=== PATIENT | male | born 1940 | race Caucasian/White ===

== ENCOUNTER 2016-02-19 14:54 | Outpatient (RCR) | payer MEDICARE, OTHER ==
--- OUTSIDE RECORDS SUMMARY | 2015-12-11 14:36 | XMS REPORT | Continuity of Care Document ---
Author Author [facility] Organization [facility] Address Unknown Phone Unavailable Care Team Providers Care Restaurant Supervisor Name Role Phone CHRISTIANA GIBSON MD PCP Insurance Providers Payer Name Policy Number Subscriber Name Relationship [employer] [id number] Martin Maldonado 18 Self / Same As Patient [employer] [id number] Martin Mladonado 20 Self / Same As Patient Advance Directives Directive Response Recorded Date/Time Advance Directives No 08/03/12 7:56am Health Care Power of Dental Tech No 08/03/12 7:56am Organ Donor No 08/03/12 7:56am Problems No problem information available. Medications Current Home Medications Medication Dose Units Route Directions Days/Qty Instructions Start Date Lisinopril 20 Mg 20 Mg Oral Daily 10/20/11 Cimetidine 200 Mg 200 Mg Oral Twice A Day 10/20/11 Aspirin 325 Mg 325 Mg Oral Daily 07/25/12 Salmeterol Xinafoate 50 Mcg 1 Puff Inhalation Give Every 12 Hrs On Schedule 07/25/12 Hydrochlorothiazide 25 Mg 25 Mg Oral Daily 08/03/12 Tamsulosin Hcl 0.4 Mg 0.4 Mg Oral Daily 08/03/12 Past Home Medications Medication Directions Ordered Status Atenolol 25 Mg Tablet, 1 Each Oral Twice A Day 10/20/11 Discontinued Fluticasone Propionate 100 Mcg Disk.w.dev, 1 Puff Inhalation Twice A Day 06/03 Discontinued Docusate Sodium 100 Mg Tablet, 100 Mg Oral 07/25/12 Discontinued Social History Social History Problem Response Recorded Date/Time Recent Foreign Travel [place] 09/04/2015 2:38pm Hospital Discharge Instructions No hospital discharge instructions. Plan of Care Prescriptions See Medication Section Functional Status No functional status results. Allergies, Adverse Reactions, Alerts Allergen Type Severity Reaction Status Last Updated cefuroxime axetil Allergy Active 10/20/11 Cephalexin Monohydrate Allergy Active 10/20/11 Cefadroxil Hydrate Allergy Active 10/20/11 Penicillins ([id number]) Allergy Unknown Active 08/03/12 Cephalosporins ([id number]) Allergy Active 10/20/11 Cephalexin Allergy Active 10/20/11 cefaclor ([id number]) Allergy Active 10/20/11 amoxicillin ([id number]) Allergy Active 10/20/11 Immunizations No immunization records. Vital Signs No known vital signs results. Results Laboratory Results Test Name Result Units Flags Reference Collection Date/Time Result Date/ Time Comments White Blood Count 5.7 10^3/uL 4.3-11.0 11/06/2015 2:45pm 11/08/2015 10: 00pm Red Blood Count 4.19 10^6/uL L 4.35-5.85 11/06/2015 2:45pm 11/08/2015 10: 00pm Hemoglobin 14.2 G/DL 13.3-17.7 11/06/2015 2:45pm 11/08/2015 10:00pm Hematocrit 43 % 40-54 11/06/2015 2:45pm 11/08/2015 10:00pm Mean Corpuscular Volume 103 FL H 80-99 11/06/2015 2:45pm 11/08/2015 10: 00pm Mean Corpuscular Hemoglobin 34 PG 25-34 11/06/2015 2:45pm 11/08/2015 10 :00pm Mean Corpuscular Hemoglobin Concent 33 G/DL 32-36 11/06/2015 2:45pm 10:00pm Red Cell Distribution Width 13.4 % 10.0-14.5 11/06/2015 2:45pm 2015 10:00pm Platelet Count 222 10^3/uL 130-400 11/06/2015 2:45pm 11/08/2015 10: 00pm Mean Platelet Volume 9.8 FL 7.4-10.4 11/06/2015 2:45pm 11/08/2015 10: 00pm Neutrophils (%) (Auto) 66 % 42-75 11/06/2015 2:45pm 11/08/2015 10:00pm Lymphocytes (%) (Auto) 23 % 12-44 11/06/2015 2:45pm 11/08/2015 10:00pm Monocytes (%) (Auto) 8 % 0-12 11/06/2015 2:45pm 11/08/2015 10:00pm Eosinophils (%) (Auto) 2 % 0-10 11/06/2015 2:45pm 11/08/2015 10:00pm Basophils (%) (Auto) 1 % 0-10 11/06/2015 2:45pm 11/08/2015 10:00pm Neutrophils # (Auto) 3.7 X 10^3 1.8-7.8 11/06/2015 2:45pm 11/08/2015 10 :00pm Lymphocytes # (Auto) 1.3 X 10^3 1.0-4.0 11/06/2015 2:45pm 11/08/2015 10 :00pm Monocytes # (Auto) 0.5 X 10^3 0.0-1.0 11/06/2015 2:45pm 11/08/2015 10: 00pm Eosinophils # (Auto) 0.1 10^3/uL 0.0-0.3 11/06/2015 2:45pm 11/08/2015 10:00pm Basophils # (Auto) 0.1 10^3/uL 0.0-0.1 11/06/2015 2:45pm 11/08/2015 10: 00pm Sodium Level 139 MMOL/L 135-145 11/06/2015 2:45pm 11/07/2015 11:32am Potassium Level 4.4 MMOL/L 3.6-5.0 11/06/2015 2:45pm 11/07/2015 11: 32am Chloride Level 111 MMOL/L H 98-107 11/06/2015 2:45pm 11/07/2015 11:32am Carbon Dioxide Level 21 MMOL/L 21-32 11/06/2015 2:45pm 11/07/2015 11: 32am Anion Gap 7 MMOL/L 5-14 11/06/2015 2:45pm 11/07/2015 11:32am Blood Urea Nitrogen 29 MG/DL H 7-18 11/06/2015 2:45pm 11/07/2015 11:32am Creatinine 1.32 MG/DL H 0.60-1.30 11/06/2015 2:45pm 11/07/2015 11:32am BUN/Creatinine Ratio 22 11/06/2015 2:45pm 11/07/2015 11:32am Estimat Glomerular Filtration Rate 53 11/06/2015 2:45pm 11/07/2015 11:32am GFR INTERPRETIVE DATA UNITS FOR ESTIMATED GFR (eGFR): mL/min/1.73 M2 REFERENCE RANGE FOR ESTIMATED GFR (eGFR) eGFR NORMAL eGFR >60 MODERATELY DECREASED eGFR 30-59 SEVERLY DECREASED eGFR 15-29 KIDNEY FAILURE <15 (OR DIALYSIS) Glucose Level 132 MG/DL H 70-105 11/06/2015 2:45pm 11/07/2015 11:32am Calcium Level 8.7 MG/DL 8.5-10.1 11/06/2015 2:45pm 11/07/2015 11:32am Total Bilirubin 1.4 MG/DL H 0.1-1.0 11/06/2015 2:45pm 11/07/2015 11:32am Alkaline Phosphatase 73 U/L 40-136 11/06/2015 2:45pm 11/07/2015 11: 32am Aspartate Amino Transf (AST/SGOT) 18 U/L 5-34 11/06/2015 2:45pm 2015 11:32am Alanine Aminotransferase (ALT/SGPT) 26 U/L 0-55 11/06/2015 2:45pm 11/06 11:32am Total Protein 5.5 G/DL L 6.4-8.2 11/06/2015 2:45pm 11/07/2015 11:32am Albumin 3.6 G/DL 3.2-4.5 11/06/2015 2:45pm 11/07/2015 11:32am Procedures No known history of procedures. Encounters Encounter Location Arrival/Admit Date Discharge/Depart Date Attending Provider Discharged Recurring [facility] 11/06/15 2:42pm 12:01pm TEODORO CARRERA MD
[2015-12-11 17:04] LABS: BASOPHILS % (AUTO) 1 % (0-10); EOSINOPHILS # (AUTO) 0.1 10^3/uL (0.0-0.3); EOSINOPHILS % (AUTO) 1 % (0-10); LYMPHOCYTES # (AUTO) 0.9 X 10^3 (1.0-4.0); LYMPHOCYTES % (AUTO) 21 % (12-44); MEAN CORPUSCULAR HEMOGLOBIN 34 PG (25-34); MEAN CORPUSCULAR HGB CONC 33 G/DL (32-36); MEAN CORPUSCULAR VOLUME 104 FL (80-99); MEAN PLATELET VOLUME 10.1 FL (7.4-10.4); MONOCYTES # (AUTO) 0.5 X 10^3 (0.0-1.0); MONOCYTES % (AUTO) 12 % (0-12); NEUTROPHILS # (AUTO) 2.9 X 10^3 (1.8-7.8); NEUTROPHILS % (AUTO) 66 % (42-75); PLATELET COUNT 192 10^3/uL (130-400); RED BLOOD COUNT 4.38 10^6/uL (4.35-5.85); RED CELL DISTRIBUTION WIDTH 14.4 % (10.0-14.5); WHITE BLOOD COUNT 4.5 10^3/uL (4.3-11.0)
[2015-12-11 17:35] LABS: ALANINE AMINOTRANSFERASE 33 U/L (0-55); ALBUMIN 3.8 G/DL (3.2-4.5); ANION GAP 7 MMOL/L (5-14); ASPARTATE AMINO TRANSFERASE 20 U/L (5-34); BILIRUBIN,TOTAL 2.1 MG/DL (0.1-1.0); BLOOD UREA NITROGEN 22 MG/DL (7-18); BUN/CREATININE RATIO 19; CALCIUM 9.2 MG/DL (8.5-10.1); CARBON DIOXIDE 27 MMOL/L (21-32); CHLORIDE 106 MMOL/L (98-107); CREATININE SERUM 1.14 MG/DL (0.60-1.30); GFR ESTIMATED > 60; POTASSIUM 4.5 MMOL/L (3.6-5.0); SODIUM 140 MMOL/L (135-145); TOTAL PROTEIN 5.7 G/DL (6.4-8.2)
[2015-12-11 17:36] LABS: GLUCOSE 50 MG/DL (70-105)
[2016-01-08 16:52] LABS: BASOPHILS # (AUTO) 0.1 10^3/uL (0.0-0.1); BASOPHILS % (AUTO) 1 % (0-10); EOSINOPHILS # (AUTO) 0.2 10^3/uL (0.0-0.3); EOSINOPHILS % (AUTO) 2 % (0-10); LYMPHOCYTES # (AUTO) 1.3 X 10^3 (1.0-4.0); LYMPHOCYTES % (AUTO) 19 % (12-44); MEAN CORPUSCULAR HEMOGLOBIN 35 PG (25-34); MEAN CORPUSCULAR HGB CONC 34 G/DL (32-36); MEAN CORPUSCULAR VOLUME 102 FL (80-99); MEAN PLATELET VOLUME 9.7 FL (7.4-10.4); MONOCYTES # (AUTO) 0.5 X 10^3 (0.0-1.0); MONOCYTES % (AUTO) 8 % (0-12); NEUTROPHILS # (AUTO) 4.8 X 10^3 (1.8-7.8); NEUTROPHILS % (AUTO) 70 % (42-75); PLATELET COUNT 330 10^3/uL (130-400); RED BLOOD COUNT 4.23 10^6/uL (4.35-5.85); RED CELL DISTRIBUTION WIDTH 14.2 % (10.0-14.5); WHITE BLOOD COUNT 6.9 10^3/uL (4.3-11.0)
[2016-01-08 17:30] LABS: ALBUMIN 3.8 G/DL (3.2-4.5); BILIRUBIN,TOTAL 1.7 MG/DL (0.1-1.0); CALCIUM 9.2 MG/DL (8.5-10.1); CREATININE SERUM 1.29 MG/DL (0.60-1.30); POTASSIUM 4.8 MMOL/L (3.6-5.0); TOTAL PROTEIN 5.9 G/DL (6.4-8.2)
[~2016-02-19 14:54] MED LIST: ASP325T PO; ATEN25TA PO; CIME200T86 PO; DOCU100T7 PO; FLUT100D IH; HCT25T PO; LISI20TA PO; SLM50DS INH; TAMS0.4C2 PO
[2016-02-19 15:54] LABS: BASOPHILS # (AUTO) 0.1 10^3/uL (0.0-0.1); BASOPHILS % (AUTO) 1 % (0-10); EOSINOPHILS # (AUTO) 0.1 10^3/uL (0.0-0.3); EOSINOPHILS % (AUTO) 2 % (0-10); LYMPHOCYTES # (AUTO) 1.1 X 10^3 (1.0-4.0); LYMPHOCYTES % (AUTO) 18 % (12-44); MEAN CORPUSCULAR HEMOGLOBIN 35 PG (25-34); MEAN CORPUSCULAR HGB CONC 34 G/DL (32-36); MEAN CORPUSCULAR VOLUME 103 FL (80-99); MEAN PLATELET VOLUME 9.4 FL (7.4-10.4); MONOCYTES # (AUTO) 0.5 X 10^3 (0.0-1.0); MONOCYTES % (AUTO) 8 % (0-12); NEUTROPHILS # (AUTO) 4.4 X 10^3 (1.8-7.8); NEUTROPHILS % (AUTO) 71 % (42-75); PLATELET COUNT 255 10^3/uL (130-400); RED BLOOD COUNT 4.44 10^6/uL (4.35-5.85); RED CELL DISTRIBUTION WIDTH 13.9 % (10.0-14.5); WHITE BLOOD COUNT 6.3 10^3/uL (4.3-11.0)
[2016-02-19 16:18] LABS: ALBUMIN 3.9 G/DL (3.2-4.5); BILIRUBIN,TOTAL 1.3 MG/DL (0.1-1.0); CALCIUM 9.1 MG/DL (8.5-10.1); CREATININE SERUM 1.35 MG/DL (0.60-1.30); POTASSIUM 4.3 MMOL/L (3.6-5.0); TOTAL PROTEIN 5.9 G/DL (6.4-8.2)
== END 2016-03-10 | disposition home or self-care (01) ==
LOC: PAR 14:54
PROVIDERS: ATTEND Internal Medicine Hematology & Oncology
DX: D69.3 Immune thrombocytopenic purpura (principal); D50.9 Iron deficiency anemia, unspecified; I10 Essential (primary) hypertension; Z79.899 Other long term (current) drug therapy
CPT/HCPCS: 36415; 80053; 85025; 99213

== ENCOUNTER 2016-05-27 14:48 | Outpatient (RCR) | payer MEDICARE, OTHER ==
--- OUTSIDE RECORDS SUMMARY | 2016-03-11 15:06 | XMS REPORT | Continuity of Care Document ---
Author Author [facility] Organization [facility] Address Unknown Phone Unavailable Care Team Providers Care Children'S Lunchroom Supervisor Name Role Phone CHRISTIANA GIBSON MD PCP Insurance Providers Payer Name Policy Number Subscriber Name Relationship [employer] [id number] Martin Maldonado 20 Self / Same As Patient [employer] [id number] Martin Maldonado 20 Self / Same As Patient Advance Directives Directive Response Recorded Date/Time Advance Directives No 08/03/12 7:56am Health Care Power of Academic Tutor No 08/03/12 7:56am Organ Donor No 08/03/12 [...] 10/20/11 Cefadroxil Hydrate Allergy Active 10/20/11 Penicillins ([id number]) Allergy Unknown Active 08/03/12 Cephalosporins ([id number]) Allergy Active 10/20/11 Cephalexin Allergy Active 10/20/11 cefaclor ([id number]) Allergy Active 10/20/11 amoxicillin ([id number]) Allergy Active 10/20/11 Immunizations No immunization records. [...] Discharge/Depart Date Attending Provider Discharged Recurring [facility] 11/06/15 2:42pm 12:01pm TEODORO CARRERA MD
[2016-03-11 15:59] LABS: BASOPHILS % (AUTO) 1 % (0-10); EOSINOPHILS # (AUTO) 0.1 10^3/uL (0.0-0.3); EOSINOPHILS % (AUTO) 1 % (0-10); LYMPHOCYTES # (AUTO) 1.3 X 10^3 (1.0-4.0); LYMPHOCYTES % (AUTO) 20 % (12-44); MEAN CORPUSCULAR HEMOGLOBIN 36 PG (25-34); MEAN CORPUSCULAR HGB CONC 35 G/DL (32-36); MEAN CORPUSCULAR VOLUME 102 FL (80-99); MEAN PLATELET VOLUME 9.2 FL (7.4-10.4); MONOCYTES # (AUTO) 0.6 X 10^3 (0.0-1.0); MONOCYTES % (AUTO) 9 % (0-12); NEUTROPHILS # (AUTO) 4.7 X 10^3 (1.8-7.8); NEUTROPHILS % (AUTO) 69 % (42-75); PLATELET COUNT 310 10^3/uL (130-400); RED BLOOD COUNT 3.94 10^6/uL (4.35-5.85); RED CELL DISTRIBUTION WIDTH 14.6 % (10.0-14.5); WHITE BLOOD COUNT 6.8 10^3/uL (4.3-11.0)
[2016-03-11 16:39] LABS: ALBUMIN 3.7 G/DL (3.2-4.5); CALCIUM 8.8 MG/DL (8.5-10.1); CREATININE SERUM 1.57 MG/DL (0.60-1.30); POTASSIUM 4.9 MMOL/L (3.6-5.0); TOTAL PROTEIN 5.6 G/DL (6.4-8.2)
[2016-04-22 16:23] LABS: BASOPHILS # (AUTO) 0.1 10^3/uL (0.0-0.1); BASOPHILS % (AUTO) 1 % (0-10); EOSINOPHILS # (AUTO) 0.1 10^3/uL (0.0-0.3); EOSINOPHILS % (AUTO) 1 % (0-10); LYMPHOCYTES # (AUTO) 1.4 X 10^3 (1.0-4.0); LYMPHOCYTES % (AUTO) 18 % (12-44); MEAN CORPUSCULAR HEMOGLOBIN 35 PG (25-34); MEAN CORPUSCULAR HGB CONC 34 G/DL (32-36); MEAN CORPUSCULAR VOLUME 105 FL (80-99); MEAN PLATELET VOLUME 9.7 FL (7.4-10.4); MONOCYTES # (AUTO) 0.7 X 10^3 (0.0-1.0); MONOCYTES % (AUTO) 9 % (0-12); NEUTROPHILS # (AUTO) 5.5 X 10^3 (1.8-7.8); NEUTROPHILS % (AUTO) 71 % (42-75); PLATELET COUNT 349 10^3/uL (130-400); RED BLOOD COUNT 3.94 10^6/uL (4.35-5.85); RED CELL DISTRIBUTION WIDTH 14.6 % (10.0-14.5); WHITE BLOOD COUNT 7.7 10^3/uL (4.3-11.0)
[2016-04-22 16:57] LABS: ALBUMIN 3.9 G/DL (3.2-4.5); BILIRUBIN,TOTAL 1.3 MG/DL (0.1-1.0); CREATININE SERUM 1.67 MG/DL (0.60-1.30); POTASSIUM 5.2 MMOL/L (3.6-5.0); TOTAL PROTEIN 5.8 G/DL (6.4-8.2)
[2016-05-27 16:10] LABS: BASOPHILS # (AUTO) 0.1 10^3/uL (0.0-0.1); BASOPHILS % (AUTO) 1 % (0-10); EOSINOPHILS # (AUTO) 0.1 10^3/uL (0.0-0.3); EOSINOPHILS % (AUTO) 1 % (0-10); LYMPHOCYTES # (AUTO) 1.3 X 10^3 (1.0-4.0); LYMPHOCYTES % (AUTO) 17 % (12-44); MEAN CORPUSCULAR HEMOGLOBIN 36 PG (25-34); MEAN CORPUSCULAR HGB CONC 34 G/DL (32-36); MEAN CORPUSCULAR VOLUME 107 FL (80-99); MEAN PLATELET VOLUME 9.3 FL (7.4-10.4); MONOCYTES # (AUTO) 0.6 X 10^3 (0.0-1.0); MONOCYTES % (AUTO) 8 % (0-12); NEUTROPHILS # (AUTO) 5.4 X 10^3 (1.8-7.8); NEUTROPHILS % (AUTO) 73 % (42-75); PLATELET COUNT 338 10^3/uL (130-400); RED BLOOD COUNT 3.63 10^6/uL (4.35-5.85); RED CELL DISTRIBUTION WIDTH 13.9 % (10.0-14.5); WHITE BLOOD COUNT 7.3 10^3/uL (4.3-11.0)
[2016-05-27 17:03] LABS: ALBUMIN 3.7 G/DL (3.2-4.5); BILIRUBIN,TOTAL 1.3 MG/DL (0.1-1.0); CALCIUM 8.7 MG/DL (8.5-10.1); CREATININE SERUM 1.77 MG/DL (0.60-1.30); POTASSIUM 5.3 MMOL/L (3.6-5.0); TOTAL PROTEIN 5.4 G/DL (6.4-8.2)
== END 2016-06-09 | disposition home or self-care (01) ==
LOC: PAR 14:48
PROVIDERS: ATTEND Internal Medicine Hematology & Oncology
DX: D69.3 Immune thrombocytopenic purpura (principal); D50.9 Iron deficiency anemia, unspecified; I10 Essential (primary) hypertension; Z79.899 Other long term (current) drug therapy
CPT/HCPCS: 36415; 80053; 85025; 99213

== ENCOUNTER 2016-07-06 09:51 | Outpatient (RCR) | payer MEDICARE, OTHER ==
--- NOTE | 2016-07-06 10:08 | Diagnostic Imaging Report ---
INDICATION: Chronic lung disease. PA and lateral chest. There is some scarring above the left basilar pleura. There are no infiltrates, effusions, or pneumothoraces. IMPRESSION: Left basilar pleural scarring. No acute abnormality seen. Dictated by: Dictated on workstation # [id number]
[2016-07-06 10:17] LABS: BASOPHILS # (AUTO) 0.1 10^3/uL (0.0-0.1); BASOPHILS % (AUTO) 1 % (0-10); EOSINOPHILS # (AUTO) 0.1 10^3/uL (0.0-0.3); EOSINOPHILS % (AUTO) 1 % (0-10); LYMPHOCYTES # (AUTO) 1.3 X 10^3 (1.0-4.0); LYMPHOCYTES % (AUTO) 22 % (12-44); MEAN CORPUSCULAR HEMOGLOBIN 37 PG (25-34); MEAN CORPUSCULAR HGB CONC 35 G/DL (32-36); MEAN CORPUSCULAR VOLUME 106 FL (80-99); MEAN PLATELET VOLUME 8.9 FL (7.4-10.4); MONOCYTES # (AUTO) 0.5 X 10^3 (0.0-1.0); MONOCYTES % (AUTO) 8 % (0-12); NEUTROPHILS # (AUTO) 3.9 X 10^3 (1.8-7.8); NEUTROPHILS % (AUTO) 68 % (42-75); PLATELET COUNT 303 10^3/uL (130-400); RED BLOOD COUNT 3.79 10^6/uL (4.35-5.85); WHITE BLOOD COUNT 5.8 10^3/uL (4.3-11.0)
== END 2016-10-04 | disposition home or self-care (01) ==
LOC: ONC 09:51
PROVIDERS: ATTEND Internal Medicine Hematology & Oncology
DX: D47.3 Essential (hemorrhagic) thrombocythemia (principal); C91.10 Chronic lymphocytic leukemia of B-cell type not having achieved remission; I10 Essential (primary) hypertension; I48.91 Unspecified atrial fibrillation; K21.9 Gastro-esophageal reflux disease without esophagitis; R05 Cough; Z79.899 Other long term (current) drug therapy
CPT/HCPCS: 71020; 85025; 99213

== ENCOUNTER → 2016-07-06 | Outpatient (CLI) | payer MEDICARE, OTHER ==
[2016-07-06 11:54] LABS: ALBUMIN 3.9 G/DL (3.2-4.5); BILIRUBIN,TOTAL 0.8 MG/DL (0.1-1.0); CALCIUM 9.2 MG/DL (8.5-10.1); CREATININE SERUM 1.31 MG/DL (0.60-1.30); POTASSIUM 4.4 MMOL/L (3.6-5.0); TOTAL PROTEIN 5.9 G/DL (6.4-8.2)
[2016-07-06 12:14] LABS: THYROID STIMULATING HORMONE 2.04 UIU/ML (0.35-4.94)
== END ==
LOC: LAB 09:58
PROVIDERS: ATTEND Internal Medicine Cardiovascular Disease
DX: I48.0 Paroxysmal atrial fibrillation (principal); I10 Essential (primary) hypertension
CPT/HCPCS: 36415; 80053; 84443

== ENCOUNTER 2016-09-16 14:13 | Outpatient (RCR) | payer MEDICARE, OTHER ==
[2016-06-24 16:12] LABS: BASOPHILS % (AUTO) 1 % (0-10); EOSINOPHILS # (AUTO) 0.1 10^3/uL (0.0-0.3); EOSINOPHILS % (AUTO) 2 % (0-10); LYMPHOCYTES # (AUTO) 1.4 X 10^3 (1.0-4.0); LYMPHOCYTES % (AUTO) 19 % (12-44); MEAN CORPUSCULAR HEMOGLOBIN 36 PG (25-34); MEAN CORPUSCULAR HGB CONC 33 G/DL (32-36); MEAN CORPUSCULAR VOLUME 109 FL (80-99); MEAN PLATELET VOLUME 9.3 FL (7.4-10.4); MONOCYTES # (AUTO) 0.5 X 10^3 (0.0-1.0); MONOCYTES % (AUTO) 7 % (0-12); NEUTROPHILS # (AUTO) 5.4 X 10^3 (1.8-7.8); NEUTROPHILS % (AUTO) 72 % (42-75); PLATELET COUNT 401 10^3/uL (130-400); RED BLOOD COUNT 3.67 10^6/uL (4.35-5.85); RED CELL DISTRIBUTION WIDTH 13.6 % (10.0-14.5); WHITE BLOOD COUNT 7.5 10^3/uL (4.3-11.0)
[2016-06-24 16:54] LABS: ALBUMIN 3.6 G/DL (3.2-4.5); BILIRUBIN,TOTAL 0.9 MG/DL (0.1-1.0); CALCIUM 8.9 MG/DL (8.5-10.1); CREATININE SERUM 1.55 MG/DL (0.60-1.30); POTASSIUM 4.3 MMOL/L (3.6-5.0); TOTAL PROTEIN 5.5 G/DL (6.4-8.2)
[2016-08-12 16:38] LABS: BASOPHILS # (AUTO) 0.1 10^3/uL (0.0-0.1); BASOPHILS % (AUTO) 1 % (0-10); EOSINOPHILS # (AUTO) 0.1 10^3/uL (0.0-0.3); EOSINOPHILS % (AUTO) 2 % (0-10); LYMPHOCYTES # (AUTO) 1.3 X 10^3 (1.0-4.0); LYMPHOCYTES % (AUTO) 20 % (12-44); MEAN CORPUSCULAR HEMOGLOBIN 36 PG (25-34); MEAN CORPUSCULAR HGB CONC 35 G/DL (32-36); MEAN CORPUSCULAR VOLUME 104 FL (80-99); MEAN PLATELET VOLUME 9.8 FL (7.4-10.4); MONOCYTES # (AUTO) 0.5 X 10^3 (0.0-1.0); MONOCYTES % (AUTO) 8 % (0-12); NEUTROPHILS # (AUTO) 4.7 X 10^3 (1.8-7.8); NEUTROPHILS % (AUTO) 70 % (42-75); PLATELET COUNT 325 10^3/uL (130-400); RED BLOOD COUNT 3.82 10^6/uL (4.35-5.85); RED CELL DISTRIBUTION WIDTH 13.6 % (10.0-14.5); WHITE BLOOD COUNT 6.7 10^3/uL (4.3-11.0)
[2016-08-12 17:04] LABS: ALBUMIN 3.7 GM/DL (3.2-4.5); BILIRUBIN,TOTAL 1.4 MG/DL (0.1-1.0); CALCIUM 8.9 MG/DL (8.5-10.1); CREATININE SERUM 1.87 MG/DL (0.60-1.30); ICTERUS 1.3 (-100-1.9); POTASSIUM 4.3 MMOL/L (3.6-5.0); TOTAL PROTEIN 5.9 GM/DL (6.4-8.2)
[2016-09-09 16:05] LABS: BASOPHILS # (AUTO) 0.1 10^3/uL (0.0-0.1); BASOPHILS % (AUTO) 1 % (0-10); EOSINOPHILS # (AUTO) 0.1 10^3/uL (0.0-0.3); EOSINOPHILS % (AUTO) 1 % (0-10); LYMPHOCYTES # (AUTO) 1.3 X 10^3 (1.0-4.0); LYMPHOCYTES % (AUTO) 21 % (12-44); MEAN CORPUSCULAR HEMOGLOBIN 36 PG (25-34); MEAN CORPUSCULAR HGB CONC 34 G/DL (32-36); MEAN CORPUSCULAR VOLUME 105 FL (80-99); MEAN PLATELET VOLUME 9.6 FL (7.4-10.4); MONOCYTES # (AUTO) 0.6 X 10^3 (0.0-1.0); MONOCYTES % (AUTO) 10 % (0-12); NEUTROPHILS # (AUTO) 4.2 X 10^3 (1.8-7.8); NEUTROPHILS % (AUTO) 67 % (42-75); PLATELET COUNT 294 10^3/uL (130-400); RED BLOOD COUNT 4.04 10^6/uL (4.35-5.85); RED CELL DISTRIBUTION WIDTH 14.3 % (10.0-14.5); WHITE BLOOD COUNT 6.2 10^3/uL (4.3-11.0)
[2016-09-09 16:32] LABS: ALBUMIN 3.7 GM/DL (3.2-4.5); BILIRUBIN,TOTAL 1.5 MG/DL (0.1-1.0); CREATININE SERUM 1.71 MG/DL (0.60-1.30); POTASSIUM 4.5 MMOL/L (3.6-5.0); TOTAL PROTEIN 5.7 GM/DL (6.4-8.2)
== END 2016-09-22 | disposition home or self-care (01) ==
LOC: PAR 14:13
PROVIDERS: ATTEND Internal Medicine Hematology & Oncology
DX: D69.3 Immune thrombocytopenic purpura (principal); D50.9 Iron deficiency anemia, unspecified; I10 Essential (primary) hypertension; Z79.899 Other long term (current) drug therapy
CPT/HCPCS: 36415; 80053; 85025; 99213

== ENCOUNTER → 2016-09-22 | Outpatient (CLI) | payer MEDICARE, OTHER ==
--- NOTE | 2016-09-22 09:58 | Diagnostic Imaging Report ---
EXAMINATION: PA and lateral views of the chest. INDICATION: Chronic lung disease. Cough. COMPARISON: 07/06/2016. FINDINGS: There is left pleural scarring seen. Symmetric nodular densities projecting over the lower chest bilaterally are probably related to nipple shadows. No focal infiltrate is seen. No effusion or pneumothorax. The heart size is normal. IMPRESSION: Stable left pleural thickening. Dictated by: Dictated on workstation # [id number]
--- NOTE | 2016-09-22 11:37 | Diagnostic Imaging Report ---
PROCEDURE: US abdomen complete. TECHNIQUE: Multiple real-time grayscale images were obtained over the abdomen in various projections. INDICATION: Elevated serum creatinine. FINDINGS: The visualized portions of the pancreas appear unremarkable. The liver is fairly homogeneous with no focal lesion seen. The gallbladder demonstrates no stones or wall thickening. No pericholecystic fluid. Sonographic Gonzalez sign is reportedly negative. The CBD is 5 mm in caliber. The spleen is 14.7 cm in length, mildly enlarged. The right kidney is 10.8 and the left kidney is 12.7 cm. There is no hydronephrosis. The abdominal aorta and IVC visualized portions appear unremarkable. The urinary bladder appears to have a lobulated underlying mass effect suggestive of an enlarged prostate median lobe. No fluid collection or ascites seen. IMPRESSION: Lobulated lesion at the undersurface of the urinary bladder is suggestive of an enlarged prostate. Splenomegaly. Dictated by: Dictated on workstation # [id number]
== END ==
LOC: RAD 08:44
PROVIDERS: ATTEND Internal Medicine Hematology & Oncology
DX: N32.9 Bladder disorder, unspecified (principal); R16.1 Splenomegaly, not elsewhere classified; J98.4 Other disorders of lung; R79.89 Other specified abnormal findings of blood chemistry
CPT/HCPCS: 71020; 76700

== ENCOUNTER 2016-10-21 14:38 | Outpatient (RCR) | payer MEDICARE, OTHER ==
[2016-10-21 16:03] LABS: BASOPHILS % (AUTO) 1 % (0-10); EOSINOPHILS # (AUTO) 0.1 10^3/uL (0.0-0.3); EOSINOPHILS % (AUTO) 2 % (0-10); LYMPHOCYTES # (AUTO) 1.2 X 10^3 (1.0-4.0); LYMPHOCYTES % (AUTO) 18 % (12-44); MEAN CORPUSCULAR HEMOGLOBIN 36 PG (25-34); MEAN CORPUSCULAR HGB CONC 35 G/DL (32-36); MEAN CORPUSCULAR VOLUME 104 FL (80-99); MEAN PLATELET VOLUME 9.6 FL (7.4-10.4); MONOCYTES # (AUTO) 0.5 X 10^3 (0.0-1.0); MONOCYTES % (AUTO) 8 % (0-12); NEUTROPHILS # (AUTO) 4.7 X 10^3 (1.8-7.8); NEUTROPHILS % (AUTO) 72 % (42-75); PLATELET COUNT 302 10^3/uL (130-400); RED BLOOD COUNT 3.95 10^6/uL (4.35-5.85); RED CELL DISTRIBUTION WIDTH 13.2 % (10.0-14.5); WHITE BLOOD COUNT 6.6 10^3/uL (4.3-11.0)
[2016-10-21 16:20] LABS: ALBUMIN 3.4 GM/DL (3.2-4.5); BILIRUBIN,TOTAL 1.1 MG/DL (0.1-1.0); CREATININE SERUM 1.38 MG/DL (0.60-1.30); POTASSIUM 4.3 MMOL/L (3.6-5.0); TOTAL PROTEIN 5.6 GM/DL (6.4-8.2)
== END 2016-11-04 16:38 | disposition home or self-care (01) ==
LOC: PAR 14:38
PROVIDERS: ATTEND Internal Medicine Hematology & Oncology
DX: D69.3 Immune thrombocytopenic purpura (principal); D50.9 Iron deficiency anemia, unspecified; I10 Essential (primary) hypertension; Z79.899 Other long term (current) drug therapy
CPT/HCPCS: 36415; 80053; 85025; 99213

== ENCOUNTER 2016-12-02 14:17 | Outpatient (RCR) | payer MEDICARE, OTHER ==
[2016-12-02 14:39] LABS: BASOPHILS # (AUTO) 0.1 10^3/uL (0.0-0.1); BASOPHILS % (AUTO) 1 % (0-10); EOSINOPHILS # (AUTO) 0.1 10^3/uL (0.0-0.3); EOSINOPHILS % (AUTO) 1 % (0-10); HEMATOCRIT 46 % (40-54); HEMOGLOBIN 15.3 G/DL (13.3-17.7); LYMPHOCYTES # (AUTO) 1.3 X 10^3 (1.0-4.0); LYMPHOCYTES % (AUTO) 19 % (12-44); MEAN CORPUSCULAR HEMOGLOBIN 35 PG (25-34); MEAN CORPUSCULAR HGB CONC 33 G/DL (32-36); MEAN CORPUSCULAR VOLUME 106 FL (80-99); MEAN PLATELET VOLUME 9.1 FL (7.4-10.4); MONOCYTES # (AUTO) 0.6 X 10^3 (0.0-1.0); MONOCYTES % (AUTO) 8 % (0-12); NEUTROPHILS # (AUTO) 5.1 X 10^3 (1.8-7.8); NEUTROPHILS % (AUTO) 71 % (42-75); PLATELET COUNT 246 10^3/uL (130-400); RED BLOOD COUNT 4.36 10^6/uL (4.35-5.85); RED CELL DISTRIBUTION WIDTH 14.4 % (10.0-14.5); WHITE BLOOD COUNT 7.1 10^3/uL (4.3-11.0)
[2016-12-02 15:05] LABS: ALANINE AMINOTRANSFERASE 27 U/L (0-55); ALBUMIN 3.8 GM/DL (3.2-4.5); ALKALINE PHOSPHATASE 77 U/L (40-136); BUN/CREATININE RATIO 18; CALCIUM 9.3 MG/DL (8.5-10.1); CARBON DIOXIDE 28 MMOL/L (21-32); CHLORIDE 105 MMOL/L (98-107); CREATININE SERUM 1.16 MG/DL (0.60-1.30); GFR ESTIMATED > 60; GLUCOSE 94 MG/DL (70-105); POTASSIUM 5.1 MMOL/L (3.6-5.0); SODIUM 140 MMOL/L (135-145); TOTAL PROTEIN 6.4 GM/DL (6.4-8.2)
== END 2017-03-02 | disposition home or self-care (01) ==
LOC: ONC 14:17
PROVIDERS: ATTEND Internal Medicine Hematology & Oncology
DX: D47.3 Essential (hemorrhagic) thrombocythemia (principal); C91.10 Chronic lymphocytic leukemia of B-cell type not having achieved remission; D50.9 Iron deficiency anemia, unspecified; I10 Essential (primary) hypertension; I48.91 Unspecified atrial fibrillation; I65.23 Occlusion and stenosis of bilateral carotid arteries; J44.9 Chronic obstructive pulmonary disease, unspecified; K21.9 Gastro-esophageal reflux disease without esophagitis; Z79.899 Other long term (current) drug therapy; Z79.01 Long term (current) use of anticoagulants; Z87.891 Personal history of nicotine dependence
CPT/HCPCS: 36415; 80053; 85025; 99213

== ENCOUNTER 2017-03-10 14:28 | Outpatient (RCR) | payer MEDICARE, OTHER ==
[2017-03-10 14:48] LABS: BASOPHILS # (AUTO) 0.1 10^3/uL (0.0-0.1); BASOPHILS % (AUTO) 1 % (0-10); EOSINOPHILS # (AUTO) 0.1 10^3/uL (0.0-0.3); EOSINOPHILS % (AUTO) 1 % (0-10); HEMATOCRIT 49 % (40-54); HEMOGLOBIN 16.7 G/DL (13.3-17.7); LYMPHOCYTES # (AUTO) 1.7 X 10^3 (1.0-4.0); LYMPHOCYTES % (AUTO) 20 % (12-44); MEAN CORPUSCULAR HEMOGLOBIN 35 PG (25-34); MEAN CORPUSCULAR HGB CONC 34 G/DL (32-36); MEAN CORPUSCULAR VOLUME 103 FL (80-99); MEAN PLATELET VOLUME 9.5 FL (7.4-10.4); MONOCYTES # (AUTO) 0.6 X 10^3 (0.0-1.0); MONOCYTES % (AUTO) 7 % (0-12); NEUTROPHILS # (AUTO) 6.1 X 10^3 (1.8-7.8); NEUTROPHILS % (AUTO) 71 % (42-75); PLATELET COUNT 288 10^3/uL (130-400); RED BLOOD COUNT 4.74 10^6/uL (4.35-5.85); RED CELL DISTRIBUTION WIDTH 13.2 % (10.0-14.5); WHITE BLOOD COUNT 8.6 10^3/uL (4.3-11.0)
[2017-03-10 15:30] LABS: ALBUMIN 3.9 GM/DL (3.2-4.5); BILIRUBIN,TOTAL 1.3 MG/DL (0.1-1.0); CALCIUM 9.2 MG/DL (8.5-10.1); CREATININE SERUM 1.29 MG/DL (0.60-1.30); POTASSIUM 4.7 MMOL/L (3.6-5.0); TOTAL PROTEIN 6.5 GM/DL (6.4-8.2)
== END 2017-03-10 16:56 | disposition home or self-care (01) ==
LOC: ONC 14:28
PROVIDERS: ATTEND Internal Medicine Hematology & Oncology
DX: D47.3 Essential (hemorrhagic) thrombocythemia (principal); C91.10 Chronic lymphocytic leukemia of B-cell type not having achieved remission; D50.9 Iron deficiency anemia, unspecified; I10 Essential (primary) hypertension; I48.91 Unspecified atrial fibrillation; I65.23 Occlusion and stenosis of bilateral carotid arteries; J44.9 Chronic obstructive pulmonary disease, unspecified; K21.9 Gastro-esophageal reflux disease without esophagitis; Z79.899 Other long term (current) drug therapy; Z79.01 Long term (current) use of anticoagulants; Z87.891 Personal history of nicotine dependence
CPT/HCPCS: 36415; 80053; 85025; 99213

== ENCOUNTER 2017-06-20 13:54 | Outpatient (RCR) | payer MEDICARE, OTHER ==
[2017-06-09 13:34] LABS: BASOPHILS % (AUTO) 1 % (0-10); EOSINOPHILS # (AUTO) 0.1 10^3/uL (0.0-0.3); EOSINOPHILS % (AUTO) 1 % (0-10); HEMATOCRIT 46 % (40-54); HEMOGLOBIN 15.5 G/DL (13.3-17.7); LYMPHOCYTES # (AUTO) 1.3 X 10^3 (1.0-4.0); LYMPHOCYTES % (AUTO) 20 % (12-44); MEAN CORPUSCULAR HEMOGLOBIN 35 PG (25-34); MEAN CORPUSCULAR HGB CONC 33 G/DL (32-36); MEAN CORPUSCULAR VOLUME 105 FL (80-99); MEAN PLATELET VOLUME 8.9 FL (7.4-10.4); MONOCYTES # (AUTO) 0.6 X 10^3 (0.0-1.0); MONOCYTES % (AUTO) 10 % (0-12); NEUTROPHILS # (AUTO) 4.3 X 10^3 (1.8-7.8); NEUTROPHILS % (AUTO) 68 % (42-75); PLATELET COUNT 251 10^3/uL (130-400); RED BLOOD COUNT 4.43 10^6/uL (4.35-5.85); RED CELL DISTRIBUTION WIDTH 14.4 % (10.0-14.5); WHITE BLOOD COUNT 6.2 10^3/uL (4.3-11.0)
[2017-06-09 13:51] LABS: BILIRUBIN,TOTAL 1.1 MG/DL (0.1-1.0); CALCIUM 9.1 MG/DL (8.5-10.1); CREATININE SERUM 1.18 MG/DL (0.60-1.30); POTASSIUM 4.6 MMOL/L (3.6-5.0); TOTAL PROTEIN 6.2 GM/DL (6.4-8.2)
== END 2017-09-07 | disposition home or self-care (01) ==
LOC: ONC 13:54
PROVIDERS: ATTEND Internal Medicine Hematology & Oncology
DX: D47.3 Essential (hemorrhagic) thrombocythemia (principal); C91.10 Chronic lymphocytic leukemia of B-cell type not having achieved remission; D50.9 Iron deficiency anemia, unspecified; I10 Essential (primary) hypertension; I48.91 Unspecified atrial fibrillation; I65.23 Occlusion and stenosis of bilateral carotid arteries; J44.9 Chronic obstructive pulmonary disease, unspecified; K21.9 Gastro-esophageal reflux disease without esophagitis; R42 Dizziness and giddiness; Z79.899 Other long term (current) drug therapy; Z79.01 Long term (current) use of anticoagulants; Z87.891 Personal history of nicotine dependence
CPT/HCPCS: 36415; 80053; 85025; 99213

== ENCOUNTER → 2017-07-13 | Outpatient (CLI) | payer MEDICARE, OTHER ==
[~2017-07-13] MED LIST changes: +RT-ALBUTEROL SULF 2.5 MG/3 ML PRE-MIX VIAL INH ONE; +RT-ALBUTEROL SULF 2.5 MG/3 ML PRE-MIX VIAL ONE
== END ==
LOC: RT 14:26
PROVIDERS: ATTEND Nurse Practitioner Family
DX: J44.9 Chronic obstructive pulmonary disease, unspecified (principal); R06.00 Dyspnea, unspecified; R05 Cough
CPT/HCPCS: 94060; 94726; 94729

== ENCOUNTER 2017-10-11 12:36 | Outpatient (RCR) | payer MEDICARE, OTHER ==
[~2017-10-11 12:36] MED LIST changes: -RT-ALBUTEROL SULF 2.5 MG/3 ML PRE-MIX VIAL INH ONE; -RT-ALBUTEROL SULF 2.5 MG/3 ML PRE-MIX VIAL ONE
[2017-10-11 12:51] LABS: BASOPHILS % (AUTO) 1 % (0-10); EOSINOPHILS # (AUTO) 0.1 10^3/uL (0.0-0.3); EOSINOPHILS % (AUTO) 1 % (0-10); HEMATOCRIT 47 % (40-54); HEMOGLOBIN 15.7 G/DL (13.3-17.7); LYMPHOCYTES # (AUTO) 1.7 X 10^3 (1.0-4.0); LYMPHOCYTES % (AUTO) 25 % (12-44); MEAN CORPUSCULAR HEMOGLOBIN 34 PG (25-34); MEAN CORPUSCULAR HGB CONC 34 G/DL (32-36); MEAN CORPUSCULAR VOLUME 101 FL (80-99); MEAN PLATELET VOLUME 9.1 FL (7.4-10.4); MONOCYTES # (AUTO) 0.5 X 10^3 (0.0-1.0); MONOCYTES % (AUTO) 7 % (0-12); NEUTROPHILS # (AUTO) 4.5 X 10^3 (1.8-7.8); NEUTROPHILS % (AUTO) 66 % (42-75); PLATELET COUNT 291 10^3/uL (130-400); RED BLOOD COUNT 4.65 10^6/uL (4.35-5.85); RED CELL DISTRIBUTION WIDTH 14.9 % (10.0-14.5); WHITE BLOOD COUNT 6.9 10^3/uL (4.3-11.0)
[2017-10-11 13:14] LABS: ALBUMIN 4.1 GM/DL (3.2-4.5); BILIRUBIN,TOTAL 1.3 MG/DL (0.1-1.0); CALCIUM 9.3 MG/DL (8.5-10.1); CREATININE SERUM 1.39 MG/DL (0.60-1.30); POTASSIUM 4.5 MMOL/L (3.6-5.0); TOTAL PROTEIN 6.4 GM/DL (6.4-8.2)
== END 2017-10-21 | disposition home or self-care (01) ==
LOC: ONC 12:36
PROVIDERS: ATTEND Internal Medicine Hematology & Oncology
DX: D47.3 Essential (hemorrhagic) thrombocythemia (principal); C91.10 Chronic lymphocytic leukemia of B-cell type not having achieved remission; D50.9 Iron deficiency anemia, unspecified; I10 Essential (primary) hypertension; I48.91 Unspecified atrial fibrillation; I65.23 Occlusion and stenosis of bilateral carotid arteries; J44.9 Chronic obstructive pulmonary disease, unspecified; K21.9 Gastro-esophageal reflux disease without esophagitis; R42 Dizziness and giddiness; Z79.899 Other long term (current) drug therapy; Z79.01 Long term (current) use of anticoagulants; Z87.891 Personal history of nicotine dependence
CPT/HCPCS: 36415; 80053; 85025; 99213

== ENCOUNTER 2018-01-03 12:44 | Outpatient (RCR) | payer MEDICARE, OTHER ==
[2018-01-03 13:04] LABS: BASOPHILS # (AUTO) 0.1 10^3/uL (0.0-0.1); BASOPHILS % (AUTO) 1 % (0-10); EOSINOPHILS # (AUTO) 0.2 10^3/uL (0.0-0.3); EOSINOPHILS % (AUTO) 2 % (0-10); HEMATOCRIT 49 % (40-54); HEMOGLOBIN 16.1 G/DL (13.3-17.7); LYMPHOCYTES # (AUTO) 1.4 X 10^3 (1.0-4.0); LYMPHOCYTES % (AUTO) 17 % (12-44); MEAN CORPUSCULAR HEMOGLOBIN 33 PG (25-34); MEAN CORPUSCULAR HGB CONC 33 G/DL (32-36); MEAN CORPUSCULAR VOLUME 101 FL (80-99); MEAN PLATELET VOLUME 9.4 FL (7.4-10.4); MONOCYTES # (AUTO) 0.5 X 10^3 (0.0-1.0); MONOCYTES % (AUTO) 6 % (0-12); NEUTROPHILS # (AUTO) 6.2 X 10^3 (1.8-7.8); NEUTROPHILS % (AUTO) 75 % (42-75); PLATELET COUNT 329 10^3/uL (130-400); RED CELL DISTRIBUTION WIDTH 14.2 % (10.0-14.5); WHITE BLOOD COUNT 8.3 10^3/uL (4.3-11.0)
[2018-01-03 13:36] LABS: ALBUMIN 3.9 GM/DL (3.2-4.5); BILIRUBIN,TOTAL 1.3 MG/DL (0.1-1.0); CALCIUM 9.1 MG/DL (8.5-10.1); CREATININE SERUM 1.23 MG/DL (0.60-1.30); POTASSIUM 4.4 MMOL/L (3.6-5.0)
== END 2018-04-03 | disposition home or self-care (01) ==
LOC: ONC 12:44
PROVIDERS: ATTEND Internal Medicine Hematology & Oncology
DX: D47.3 Essential (hemorrhagic) thrombocythemia (principal); C91.10 Chronic lymphocytic leukemia of B-cell type not having achieved remission; D50.9 Iron deficiency anemia, unspecified; I10 Essential (primary) hypertension; I48.91 Unspecified atrial fibrillation; I65.23 Occlusion and stenosis of bilateral carotid arteries; J44.9 Chronic obstructive pulmonary disease, unspecified; K21.9 Gastro-esophageal reflux disease without esophagitis; R42 Dizziness and giddiness; Z79.899 Other long term (current) drug therapy; Z79.01 Long term (current) use of anticoagulants; Z87.891 Personal history of nicotine dependence
CPT/HCPCS: 36415; 80053; 85025; 99213

== ENCOUNTER 2018-06-29 13:32 | Outpatient (RCR) | payer MEDICARE, OTHER ==
[2018-06-29 14:00] LABS: BASOPHILS # (AUTO) 0.1 10^3/uL (0.0-0.1); BASOPHILS % (AUTO) 1 % (0-10); EOSINOPHILS # (AUTO) 0.1 10^3/uL (0.0-0.3); EOSINOPHILS % (AUTO) 1 % (0-10); HEMATOCRIT 48 % (40-54); HEMOGLOBIN 16.1 G/DL (13.3-17.7); LYMPHOCYTES # (AUTO) 1.1 X 10^3 (1.0-4.0); LYMPHOCYTES % (AUTO) 15 % (12-44); MEAN CORPUSCULAR HEMOGLOBIN 35 PG (25-34); MEAN CORPUSCULAR HGB CONC 34 G/DL (32-36); MEAN CORPUSCULAR VOLUME 105 FL (80-99); MEAN PLATELET VOLUME 9.3 FL (7.4-10.4); MONOCYTES # (AUTO) 0.6 X 10^3 (0.0-1.0); MONOCYTES % (AUTO) 8 % (0-12); NEUTROPHILS # (AUTO) 5.4 X 10^3 (1.8-7.8); NEUTROPHILS % (AUTO) 76 % (42-75); PLATELET COUNT 290 10^3/uL (130-400); RED CELL DISTRIBUTION WIDTH 14.9 % (10.0-14.5); WHITE BLOOD COUNT 7.2 10^3/uL (4.3-11.0)
[2018-06-29 14:18] LABS: BILIRUBIN,TOTAL 1.4 MG/DL (0.1-1.0); CALCIUM 9.1 MG/DL (8.5-10.1); CREATININE SERUM 1.46 MG/DL (0.60-1.30); POTASSIUM 5.1 MMOL/L (3.6-5.0); TOTAL PROTEIN 6.1 GM/DL (6.4-8.2)
== END 2018-09-27 | disposition home or self-care (01) ==
LOC: ONC 13:32
PROVIDERS: ATTEND Internal Medicine Hematology & Oncology
DX: D47.3 Essential (hemorrhagic) thrombocythemia (principal); C91.10 Chronic lymphocytic leukemia of B-cell type not having achieved remission; D50.9 Iron deficiency anemia, unspecified; I10 Essential (primary) hypertension; I48.91 Unspecified atrial fibrillation; I65.23 Occlusion and stenosis of bilateral carotid arteries; J44.9 Chronic obstructive pulmonary disease, unspecified; K21.9 Gastro-esophageal reflux disease without esophagitis; R42 Dizziness and giddiness; Z79.899 Other long term (current) drug therapy; Z79.01 Long term (current) use of anticoagulants; Z87.891 Personal history of nicotine dependence
CPT/HCPCS: 36415; 80053; 85025; 99213

== ENCOUNTER 2018-12-28 12:30 | Outpatient (RCR) | payer MEDICARE, OTHER ==
[2018-12-28 13:19] LABS: BASOPHILS # (AUTO) 0.1 10^3/uL (0.0-0.1); BASOPHILS % (AUTO) 1 % (0-10); EOSINOPHILS # (AUTO) 0.1 10^3/uL (0.0-0.3); EOSINOPHILS % (AUTO) 1 % (0-10); HEMATOCRIT 46 % (40-54); HEMOGLOBIN 15.1 G/DL (13.3-17.7); LYMPHOCYTES # (AUTO) 1.1 X 10^3 (1.0-4.0); LYMPHOCYTES % (AUTO) 16 % (12-44); MEAN CORPUSCULAR HEMOGLOBIN 35 PG (25-34); MEAN CORPUSCULAR HGB CONC 33 G/DL (32-36); MEAN CORPUSCULAR VOLUME 109 FL (80-99); MEAN PLATELET VOLUME 9.1 FL (7.4-10.4); MONOCYTES # (AUTO) 0.6 X 10^3 (0.0-1.0); MONOCYTES % (AUTO) 9 % (0-12); NEUTROPHILS # (AUTO) 5.2 X 10^3 (1.8-7.8); NEUTROPHILS % (AUTO) 74 % (42-75); PLATELET COUNT 302 10^3/uL (130-400); WHITE BLOOD COUNT 7.1 10^3/uL (4.3-11.0)
[2018-12-28 13:46] LABS: ALBUMIN 3.7 GM/DL (3.2-4.5); BILIRUBIN,TOTAL 1.2 MG/DL (0.1-1.0); CALCIUM 8.7 MG/DL (8.5-10.1); CREATININE SERUM 1.37 MG/DL (0.60-1.30); POTASSIUM 4.5 MMOL/L (3.6-5.0); TOTAL PROTEIN 5.5 GM/DL (6.4-8.2)
== END 2019-03-28 | disposition home or self-care (01) ==
LOC: ONC 12:30
PROVIDERS: ATTEND Internal Medicine Hematology & Oncology
DX: D47.3 Essential (hemorrhagic) thrombocythemia (principal); C91.10 Chronic lymphocytic leukemia of B-cell type not having achieved remission; D50.9 Iron deficiency anemia, unspecified; I10 Essential (primary) hypertension; I48.91 Unspecified atrial fibrillation; I65.23 Occlusion and stenosis of bilateral carotid arteries; J44.9 Chronic obstructive pulmonary disease, unspecified; K21.9 Gastro-esophageal reflux disease without esophagitis; R42 Dizziness and giddiness; Z79.899 Other long term (current) drug therapy; Z79.01 Long term (current) use of anticoagulants; Z87.891 Personal history of nicotine dependence
CPT/HCPCS: 36415; 80053; 85025; 99213

== ENCOUNTER → 2019-08-14 | Outpatient (CLI) | payer MEDICARE, OTHER ==
[2019-08-14 13:00] LABS: BASOPHILS # (AUTO) 0.1 10^3/uL (0.0-0.1); BASOPHILS % (AUTO) 1 % (0-10); EOSINOPHILS # (AUTO) 0.1 10^3/uL (0.0-0.3); EOSINOPHILS % (AUTO) 1 % (0-10); HEMATOCRIT 43 % (40-54); HEMOGLOBIN 14.7 G/DL (13.3-17.7); LYMPHOCYTES # (AUTO) 1.3 X 10^3 (1.0-4.0); LYMPHOCYTES % (AUTO) 21 % (12-44); MEAN CORPUSCULAR HEMOGLOBIN 37 PG (25-34); MEAN CORPUSCULAR HGB CONC 34 G/DL (32-36); MEAN CORPUSCULAR VOLUME 107 FL (80-99); MEAN PLATELET VOLUME 8.9 FL (7.4-10.4); MONOCYTES # (AUTO) 0.4 X 10^3 (0.0-1.0); MONOCYTES % (AUTO) 7 % (0-12); NEUTROPHILS # (AUTO) 4.2 X 10^3 (1.8-7.8); NEUTROPHILS % (AUTO) 70 % (42-75); PLATELET COUNT 266 10^3/uL (130-400); RED CELL DISTRIBUTION WIDTH 17.1 % (10.0-14.5)
[2019-08-14 13:21] LABS: ALBUMIN 3.8 GM/DL (3.2-4.5); BILIRUBIN,TOTAL 0.9 MG/DL (0.1-1.0); CALCIUM 8.7 MG/DL (8.5-10.1); CREATININE SERUM 1.23 MG/DL (0.60-1.30); POTASSIUM 4.3 MMOL/L (3.6-5.0)
== END ==
LOC: EDSTATUS 03-29 16:44 → ONC 12:43
PROVIDERS: ATTEND Internal Medicine Hematology & Oncology
DX: D47.3 Essential (hemorrhagic) thrombocythemia (principal); C91.10 Chronic lymphocytic leukemia of B-cell type not having achieved remission; J98.4 Other disorders of lung; I65.23 Occlusion and stenosis of bilateral carotid arteries; I48.91 Unspecified atrial fibrillation; K21.9 Gastro-esophageal reflux disease without esophagitis; M79.89 Other specified soft tissue disorders; J43.9 Emphysema, unspecified; I10 Essential (primary) hypertension
CPT/HCPCS: 80053; 85025; G0463; 99213

== ENCOUNTER → 2020-05-21 | Outpatient (CLI) | payer MEDICARE, OTHER ==
[2020-05-21 13:51] LABS: BASOPHILS # (AUTO) 0.1 10^3/uL (0.0-0.1); BASOPHILS % (AUTO) 1 % (0-10); EOSINOPHILS # (AUTO) 0.2 10^3/uL (0.0-0.3); EOSINOPHILS % (AUTO) 2 % (0-10); HEMATOCRIT 48 % (40-54); HEMOGLOBIN 15.5 g/dL (13.3-17.7); LYMPHOCYTES # (AUTO) 1.8 10^3/uL (1.0-4.0); LYMPHOCYTES % (AUTO) 20 % (12-44); MEAN CORPUSCULAR HEMOGLOBIN 32 pg (25-34); MEAN CORPUSCULAR HGB CONC 32 g/dL (32-36); MEAN CORPUSCULAR VOLUME 100 fL (80-99); MEAN PLATELET VOLUME 9.6 fL (9.0-12.2); MONOCYTES # (AUTO) 0.5 10^3/uL (0.0-1.0); MONOCYTES % (AUTO) 5 % (0-12); NEUTROPHILS # (AUTO) 6.6 10^3/uL (1.8-7.8); NEUTROPHILS % (AUTO) 71 % (42-75); PLATELET COUNT 447 10^3/uL (130-400); WHITE BLOOD COUNT 9.2 10^3/uL (4.3-11.0)
[2020-05-21 14:10] LABS: ALANINE AMINOTRANSFERASE 17 U/L (0-55); ALBUMIN 3.8 GM/DL (3.2-4.5); ALKALINE PHOSPHATASE 61 U/L (40-136); BUN/CREATININE RATIO 21; CALCIUM 8.6 MG/DL (8.5-10.1); CARBON DIOXIDE 25 MMOL/L (21-32); CHLORIDE 109 MMOL/L (98-107); GFR ESTIMATED > 60; GLUCOSE 63 MG/DL (70-105); SODIUM 141 MMOL/L (135-145); TOTAL PROTEIN 5.9 GM/DL (6.4-8.2)
== END ==
LOC: ONC 13:32
PROVIDERS: ATTEND Internal Medicine Hematology & Oncology
DX: D47.3 Essential (hemorrhagic) thrombocythemia (principal); C91.90 Lymphoid leukemia, unspecified not having achieved remission; J43.9 Emphysema, unspecified; I65.23 Occlusion and stenosis of bilateral carotid arteries; I48.91 Unspecified atrial fibrillation; K21.9 Gastro-esophageal reflux disease without esophagitis; I10 Essential (primary) hypertension; M79.89 Other specified soft tissue disorders
CPT/HCPCS: 80053; 85025; G0463; 99213